=== PATIENT | male | born 2000 | race Caucasian/White ===

== ENCOUNTER 2020-12-16 10:57 | Emergency (ER) | payer OTHER ==
[2020-12-16] MEDS ORDERED: Ketorolac 30 MG/ML SDV IM ONE (11:16)
--- NOTE | 2020-12-16 11:18 | EDM.PDOC ---
ED HPI GENERAL MEDICAL PROBLEM - General Chief Complaint: Head Injury Stated Complaint: HEAD INJURY Time Seen by Provider: 12/16/20 11:16 Source of Information: Reports: Patient History Limitations: Reports: No Limitations - History of Present Illness INITIAL COMMENTS - FREE TEXT/NARRATIVE: 20 yo male was at work this AM and slipped with a knik bar and struck himself in the head resulting in him being knocked to the ground and causing headache. He is not on any anticoagulants. He does not have nausea. He had self-limiting bleeding that is now controlled. He does now know the timing of his last tetanus. He is here with a co-worker. Onset: Today, Sudden Onset Date: 12/16/20 Duration: Minutes: Location: Reports: Head Quality: Reports: Ache Severity: Moderate Improves with: Reports: None Worsens with: Reports: None Context: Reports: Trauma Associated Symptoms: Reports: No Other Symptoms. 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 Denies: Nausea : Reports: No Symptoms Musculoskeletal: Reports: No Symptoms Skin: Reports: Wound (forehead) Neurological: Reports: Headache Psychiatric: Reports: No Symptoms ED EXAM, HEAD INJURY - Physical Exam Exam: See Below Exam Limited By: No Limitations General Appearance: Alert, WD/WN, No Apparent Distress Head: Normocephalic, Facial Lacerations (central forehead). No: Atraumatic Nexus Criteria: No: Evidence of Intoxication Eyes: Bilateral Eye: Abnormal EOM, EOMI, Normal Inspection, PERRL Ears: Normal External Exam, Normal Canal, Hearing Grossly Normal, Normal TMs Nose: Normal Inspection, No Blood. 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 As Tested, No Motor/Sensory Deficits, Alert, Normal Mood/Affect, Oriented x 3 Skin: Normal Color, Warm/Dry - Abdirizak Coma Score Best Eye Response (Leonard): (4) Open Spontaneously Best Verbal Response (Leonard): (5) Oriented Best Motor Response (Leonard): (6) Obeys Commands Leonard Total: 15 Course - Orders/Labs/Meds Meds: Medications Discontinued Medications Generic Name Dose Route Start Last Admin Trade Name Carolina PRN Reason Stop Dose Admin Ketorolac Tromethamine 30 mg 12/16/20 11:16 12/16/20 11:29 Ketorolac 30 Mg/Ml Sdv IM 12/16/20 11:17 30 mg ONETIME ONE Administration - Re-Assessments/Exams Free Text/Narrative Re-Assessment/Exam: 12/16/20 12:29 Steri-strips to forehead wound. Declined tetanus today. Departure - Departure Time of Disposition: 12:35 Disposition: Home, Self-Care 01 Condition: Fair Clinical Impression: Laceration of forehead Qualifiers: Encounter type: initial encounter Qualified Code(s): S01.81XA - Laceration without foreign body of other part of head, initial encounter Concussion Qualifiers: Encounter type: initial encounter Loss of consciousness presence/duration: without LOC Qualified Code(s): S06.0X0A - Concussion without loss of consciousness, initial encounter - Discharge Information *PRESCRIPTION DRUG MONITORING PROGRAM REVIEWED*: Not Applicable *COPY OF PRESCRIPTION DRUG MONITORING REPORT IN PATIENT PUNEET: Not Applicable Instructions: Concussion, Adult, [id number] Forms: ED Department Discharge Additional Instructions: Off work through Monday. Take ibuprofen and/or acetaminophen as needed for headache. Rest in bed in a quiet room to manage your symptoms. Recheck with your doctor on Monday to see if you are ready to return to work, call for an appt. Recheck also for signs of a wound infection on your forehead.
== END 2020-12-16 13:10 | disposition home or self-care (01) ==
LOC: FB.ED 10:57
DX: S06.0X0A Concussion without loss of consciousness, initial encounter (principal); S01.81XA Laceration without foreign body of other part of head, initial encounter; W18.40XA Slipping, tripping and stumbling without falling, unspecified, initial encounter; Y99.0 Civilian activity done for income or pay
CPT/HCPCS: 96372; 99000; 99283; J1885

== ENCOUNTER 2021-07-08 00:03 | Emergency (ER) | payer BC | END 2021-07-08 00:35 | disposition home or self-care (01) | LOC: FB.ED 00:03 | DX: S61.211A Laceration without foreign body of left index finger without damage to nail, initial encounter (principal); W26.0XXA Contact with knife, initial encounter | CPT/HCPCS: 12001; 99281; 99282-25 ==

== ENCOUNTER 2021-07-17 03:44 | Emergency (ER) | payer OTHER, BC ==
[2021-07-17] MEDS ORDERED: Labetalol 200 MG Tab PO ONE (04:47)
[2021-07-17] MEDS ORDERED: Diphtheria,Pertussis(Acell),Tetanus Vaccine 0.5 ML Syringe IM ONE (04:48)
== END 2021-07-17 05:25 | disposition home or self-care (01) ==
LOC: FB.ED 03:44
DX: S40.211A Abrasion of right shoulder, initial encounter (principal); Z88.0 Allergy status to penicillin; Z23 Encounter for immunization; V89.2XXA Person injured in unspecified motor-vehicle accident, traffic, initial encounter; Y92.410 Unspecified street and highway as the place of occurrence of the external cause
CPT/HCPCS: 90471; 90715; 99282; 99283; A9270-GY